=== PATIENT | male | born 1950 | race Caucasian/White ===

== ENCOUNTER → 2018-04-02 | Outpatient (CLI) | payer OTHER | LOC: FIMAGING 09:06 | PROVIDERS: ATTEND Nurse Practitioner Family | DX: Z13.6 Encounter for screening for cardiovascular disorders (principal); I71.2 Thoracic aortic aneurysm, without rupture; R91.8 Other nonspecific abnormal finding of lung field; Z82.3 Family history of stroke; Z82.49 Family history of ischemic heart disease and other diseases of the circulatory system ==

== ENCOUNTER → 2018-04-18 | Outpatient (CLI) | payer OTHER ==
[~2018-04-18] MED LIST: IOPAMIDOL (ISOVUE 370) 100 ML BTL IV ONE
== END ==
LOC: FIMAGING 15:45
PROVIDERS: ATTEND Nurse Practitioner Family
DX: R93.1 Abnormal findings on diagnostic imaging of heart and coronary circulation (principal)
CPT/HCPCS: 82565-PO; Q9967

== ENCOUNTER 2018-06-28 08:11 | Day surgery (SDC) | payer BC, OTHER ==
[2018-06-28] MEDS ORDERED: ASPIRIN EC 325 MG TAB PO ONE ×2 (08:16→08:50)
[2018-06-28] MEDS ORDERED: NS 1,000 ML IV ONE (08:16)
[2018-06-28] MEDS ORDERED: FAMOTIDINE 20 MG TAB PO ONE (08:16)
[2018-06-28] MEDS ORDERED: diphenhydrAMINE 25 MG CAP PO ONE ×2 (08:16→08:49)
[2018-06-28] MEDS ORDERED: DIAZEPAM 5 MG TAB PO ONE (08:16)
[2018-06-28 08:50] LABS: PLATELET COUNT 243 10^3/uL (150-400)
[2018-06-28] MEDS ORDERED: DIAZEPAM 5 MG TAB ONE (08:50)
[2018-06-28] MEDS ORDERED: FAMOTIDINE 20 MG TAB ONE (08:50)
[2018-06-28 09:07] LABS: INR 1.07 (0.83-1.16); PROTIME(PATIENT) 13.5 SEC (12.0-15.0)
[2018-06-28] MEDS ORDERED: LIDOCAINE 1% 300 MG/30 ML SDV ONE (09:09)
[2018-06-28] MEDS ORDERED: fentaNYL 100 MCG/2 ML INJ ONE (09:09)
[2018-06-28] MEDS ORDERED: HEPARIN 10,000 UNIT/10 ML MDV (1,000 UNIT/ML) ONE (09:09)
[2018-06-28] MEDS ORDERED: MIDAZOLAM 2 MG/2 ML VIAL ONE (09:09)
[2018-06-28] MEDS ORDERED: VERAPAMIL 5 MG/2 ML VIAL ONE (09:09)
[2018-06-28] MEDS ORDERED: IOPAMIDOL (ISOVUE 370) 100 ML BTL IV ONE (09:10)
--- NOTE | 2018-06-28 09:59 | PDHPUP ---
History & Physical Update H&P update statement: This history and physical update is based on an assessment of the patient which was completed after admission or registration (within 24 hours), but prior to the surgery/procedure. H&P update: H&P reviewed & patient examined, no change in patient's condition since H&P completed
--- NOTE | 2018-06-28 09:59 | PDPROPOC ---
Sedation Plan of Care Sedation Plan of Care: vital signs stable, mental status noted, patient educated of risks, benefits, alternatives, patient can tolerate sedation ASA Classification: ASA 2 Planned drugs: fentanyl, midazolam Mallampati Score: Class 2 Mallampati Reference Image: Patient passed 3-3-2 rule?: Yes
[2018-06-28] MEDS ORDERED: ONDANSETRON 4 MG/2 ML VIAL IVP PRN (11:04)
[2018-06-28] MEDS ORDERED: NITROGLYCERIN 0.4 MG BTL SL PRN (11:04)
[2018-06-28] MEDS ORDERED: HYDROCODONE/APAP 5/325 TAB PO PRN (11:04)
[2018-06-28] MEDS ORDERED: ATROPINE SULFATE 1 MG/10 ML SYR IVP PRN (11:04)
--- NOTE | 2018-06-28 11:11 | PDDXCAT ---
Diagnostic Cath Note - . Date: 06/28/18 Monitor And Storage Bin Tender: Ross Indication: other (Known CAD by CT and abnormal stress test.) - Procedure Procedure: left heart catheterization, coronary angiography, left ventriculogram - Materials Left Heart Cath size: 5F Left Heart Cath materials: pigtail, other (TIG) - Findings-Left Heart Catheterization LM: Distal left main 40%. LAD: Mid-LAD 70% involving bifurcation of 1st diagonal; 1st diagonal 70% ostial. LCX: Ostial 70%; otherwise mild irregularities. RCA: Diffuse mild irregularities. EDP: 15 mmHg LVEF: 60% Wall motion: No regional variation in contractility. Complications: None Estimated blood loss: <50ml Closure method: TR Band Assessment: 1) CAD as described above. 2) Normal LV systolic function. Plan: CT surgery referral to consider CABG.
--- NOTE | 2018-07-02 15:28 | CPEKG ---
Test Reason : OPEN Blood Pressure : / mmHG Vent. Rate : 052 BPM Atrial Rate : 052 BPM P-R Int : 187 ms QRS Dur : 088 ms QT Int : 496 ms P-R-T Axes : 049 004 044 degrees QTc Int : 462 ms Sinus rhythm Confirmed by Mauricio Hood ([id number]) on 07/02/2018 3:28:17 PM Referred By: Mp Hawkins Confirmed By:Mauricio Hood
== END 2018-06-28 15:01 | disposition home or self-care (01) ==
LOC: FCATH 08:11
PROVIDERS: ATTEND Internal Medicine Interventional Cardiology
DX: I25.10 Atherosclerotic heart disease of native coronary artery without angina pectoris (principal); I10 Essential (primary) hypertension; E66.3 Overweight
CPT/HCPCS: 93005; 93458; 93880; C1769; J1644; J2250; J3010; Q9967

== ENCOUNTER 2018-07-05 07:15 | Inpatient (IN) | payer BC ==
[2018-07-06] MEDS ORDERED: PHENYLEPHRINE HCL 50 MG in NS 250 ML IV ONE (06:00)
[2018-07-06] MEDS ORDERED: PAPAVERINE HCL 240 MG in NS (SYRINGE) 32 ML IV ONE (06:00)
[2018-07-06] MEDS ORDERED: INSULIN REGULAR HUMAN 100 UNIT in NS 100 ML IV ONE (06:00)
[2018-07-06] MEDS ORDERED: MANNITOL 25% 12.5 GM/50 ML VIAL IVP ONE (06:00)
[2018-07-06] MEDS ORDERED: CARDIOPLEGIC SOLUTION 1,052.8 ML PF ONE (06:00)
[2018-07-06] MEDS ORDERED: VERAPAMIL 5 MG, NITROGLYCERIN 2.5 MG, HEPARIN 500 UNIT, SODIUM BICARBONATE 0.2 MEQ in L... MISC ONE (06:00)
[2018-07-06] MEDS ORDERED: NITROGLYCERIN/DEXTROSE 250 ML IV ONE ×2 (06:00)
[2018-07-06] MEDS ORDERED: LIDOCAINE 1% 2 ML INJ ID PRN (06:32)
[2018-07-06] MEDS ORDERED: AMINOCAPROIC ACID 5 GM/20 ML VIAL IV ONE (06:32)
[2018-07-06] MEDS ORDERED: CITRATE DEXTROSE SOLN 500 ML BAG MISC ONE (06:32)
[2018-07-06] MEDS ORDERED: ceFAZolin 2 GM/DEXTROSE 100 ML IV ONE (06:32)
[2018-07-06] MEDS ORDERED: CALCIUM CHLORIDE 1 GM/10 ML INJ ONE (06:39)
[2018-07-06] MEDS ORDERED: PROTAMINE SULFATE 50 MG/5 ML VIAL IVP ONE (06:39)
[2018-07-06] MEDS ORDERED: MILRINONE/DEXTROSE/100 ML BAG IV ONE (06:39)
[2018-07-06] MEDS ORDERED: ALBUMIN 5% 250 ML BOTTLE IV ONE ×2 (06:39→10:24)
[2018-07-06] MEDS ORDERED: AMINOCAPROIC ACID 5 GM/20 ML VIAL ONE (06:39)
[2018-07-06] MEDS ORDERED: SUCCINYLCHOLINE CHLORIDE 200 MG/10 ML SYR IVP ONE (06:40)
[2018-07-06] MEDS ORDERED: HEPARIN 10,000 UNIT/10 ML MDV (1,000 UNIT/ML) ONE (06:40)
[2018-07-06] MEDS ORDERED: MIDAZOLAM 2 MG/2 ML VIAL ONE ×2 (06:40→11:08)
[2018-07-06] MEDS ORDERED: LIDOCAINE 2% 100 MG/5 ML SYR ONE (06:40)
[2018-07-06] MEDS ORDERED: ROCURONIUM 100 MG/10 ML VIAL ONE ×2 (06:40)
[2018-07-06] MEDS ORDERED: fentaNYL 250 MCG/5 ML INJ ONE ×2 (06:40)
[2018-07-06] MEDS ORDERED: NA BICARBONATE 50 MEQ/50 ML VIAL ONE ×2 (06:40→11:40)
[2018-07-06] MEDS ORDERED: PROPOFOL 200 MG/20 ML VIAL ONE (06:40)
[2018-07-06] MEDS ORDERED: LIDOCAINE 2% 5 ML SDV ONE (06:41)
[2018-07-06] MEDS ORDERED: CITRATE DEXTROSE SOLN 500 ML BAG ONE (06:41)
[2018-07-06] MEDS ORDERED: niCARdipine/NACL/200 ML BAG IV ONE (06:41)
[2018-07-06] MEDS ORDERED: MAGNESIUM SULFATE 1 GM/2 ML VIAL ONE (06:41)
[2018-07-06] MEDS ORDERED: ADENOSINE 6 MG/2 ML VIAL ONE (06:41)
[2018-07-06] MEDS ORDERED: AMIODARONE HCL 150 MG/3 ML VIAL ONE (06:41)
[2018-07-06] MEDS ORDERED: methylPREDNISolone SOD SUCC 1 GM/8 ML VIAL ONE (06:41)
[2018-07-06] MEDS ORDERED: DOPamine/DEXTROSE 400 MG/250 ML BAG IV ONE (06:41)
[2018-07-06] MEDS ORDERED: PHENYLEPHRINE 10 MG/ML SDV ONE (06:41)
[2018-07-06] MEDS ORDERED: PAPAVERINE HCL 60 MG/2 ML SDV ONE (06:42)
[2018-07-06] MEDS ORDERED: MINERAL OIL 10 ML VIAL ONE (06:42)
[2018-07-06] MEDS ORDERED: NITROGLYCERIN/D5W 50 MG/250 ML BOTTLE IV ONE (06:42)
[2018-07-06] MEDS ORDERED: ceFAZolin 1 GM VIAL ONE (06:42)
[2018-07-06] MEDS ORDERED: VERAPAMIL 5 MG/2 ML VIAL ONE (06:42)
--- NOTE | 2018-07-06 06:42 | PDHPUP ---
History & Physical Update H&P update statement: This history and physical update is based on an assessment of the patient which was completed after admission or registration (within 24 hours), but prior to the surgery/procedure. H&P update: no change in patient's condition since H&P completed (Patient is right handed. He has played the [employer] his whole life. Discussed pros/cons of radial artery harvest including volar numbness and he is willing to proceed with CABG/radial harvest.)
[2018-07-06] MEDS ORDERED: LR 1,000 ML IV ONE (06:44)
[2018-07-06] MEDS: MUPIROCIN 2% 22 GM OINT NS SCH ×3 (06:50→21:17)
[2018-07-06] MEDS ORDERED: MIDAZOLAM 2 MG/2 ML VIAL IVP ONE (07:02)
--- NOTE | 2018-07-06 07:02 | PDANEPAE ---
ANE History of Present Illness cab ANE Past Medical History - Cardiovascular History Hx Hypertension: No Hx Arrhythmias: No Hx Chest Pain: No Hx Coronary Artery / Peripheral Vascular Disease: No Hx CHF / Valvular Disease: No Hx Palpitations: No Cardiovascular History Comment: HYPERCHOLESTEREMIA - Pulmonary History Hx COPD: No Hx Asthma/Reactive Airway Disease: No Hx Recent Upper Respiratory Infection: No Hx Oxygen in Use at Home: No Hx Sleep Apnea: No Sleep Apnea Screening Result - Last Documented: Positive - Neurologic History Hx Cerebrovascular Accident: No Hx Seizures: No Hx Dementia: No Neurologic History Comment: MIGRAINES ONCE EVERY 1-3 MOS - Endocrine History Hx Diabetes: No Hypothyroid: No Hyperthyroid: No Obesity: mild Endocrine History Comment: GLUCOSE FLUCTUATES - Renal History Hx Renal Disorders: No - Liver History Hx Hepatic Disorders: No - Neurological & Psychiatric Hx Hx Neurological and Psychiatric Disorders: No - Cancer History Hx Cancer: No - Congenital Disorder History Hx Congenital Disorders: No - GI History GERD: no Hx Gastrointestinal Disorders: No - Other Health History Other Health History: NEG - Chronic Pain History Chronic Pain: No - Surgical History Prior Surgeries: ORAL SURGERY ANE Review of Systems Review of Systems: - Exercise capacity Exercise capacity: >=4 METS METS (RN): 5 METS ANE Patient History - Allergies Allergies/Adverse Reactions: simvastatin [From Zocor] Allergy (Verified 07/06/18 06:33) MUSCLE PAIN - Home Medications Home medications: home medication list seen and reviewed Home Medications: Acetaminophen/ASA/Caffeine [Excedrin Tablet (*)] 1 each PO DAILY PRN 06/21/18 [ Last Taken 07/05/18] Aspirin [Aspirin 81mg (*)] 81 mg PO DAILY 06/21/18 [Last Taken 07/05/18] Atorvastatin Calcium [Lipitor 40 mg (*)] 40 mg PO Q2D@2100 06/21/18 [Last Taken 07/05/18] Herbals/Supplements -Info Only 1 ea PO DAILY 06/21/18 [Last Taken 07/05/18] Metoprolol Tartrate [Lopressor 25 mg (*)] 12.5 mg PO BID 06/21/18 [Last Taken ] - NPO status NPO Status: no food or drink >8 hours NPO Since - Liquids (Date): 07/05/18 NPO Since - Liquids (Time): 22:00 NPO Since - Solids (Date): 07/05/18 NPO Since - Solids (Time): 20:00 - Anes Hx Anes Hx: no prior problems - Smoking Hx Smoking Status: Never smoked - Family Anes Hx Family Hx Anesthesia Complications: NEG ANE Labs/Vital Signs - Vital Signs Blood Pressure: 163/86 Heart Rate: 54 Respiratory Rate: 16 O2 Sat (%): 96 Height: 177.8 cm Weight: 79.379 kg ANE Physical Exam - Airway Mallampati Score: Class 2 Mouth exam: normal dental/mouth exam - Pulmonary Pulmonary: no respiratory distress - Cardiovascular Cardiovascular: regular rate and rhythym - ASA Status ASA Status: III ANE Anesthesia Plan Anesthesia Plan: general endotracheal anesthesia Lines/Monitors: arterial line, central line
[2018-07-06] MEDS ORDERED: NOREPINEPHRINE BITARTRATE 16 MG in NS 250 ML IV ONE (07:30)
[2018-07-06] MEDS ORDERED: GLYCOPYRROLATE 0.2 MG/1 ML VIAL ONE ×3 (07:36→08:09)
[2018-07-06] MEDS ORDERED: ENALAPRILAT DIHYDRATE 2.5 MG/2 ML VIAL IVP ONE (07:53)
[2018-07-06] MEDS ORDERED: LABETALOL HCL 5 MG/ML 20 ML MDV ONE (07:56)
[2018-07-06] MEDS ORDERED: KETOROLAC 30 MG/1 ML SDV ONE (10:21)
[2018-07-06] MEDS ORDERED: SUGAMMADEX SODIUM 200 MG/2 ML VIAL IVP ONE (10:36)
[2018-07-06] MEDS ORDERED: CEPACOL LOZENGE PO PRN (10:51)
[2018-07-06] MEDS ORDERED: BISACODYL 10 MG SUPP PR PRN (10:51)
[2018-07-06] MEDS ORDERED: SODIUM CL NASAL 45 ML BTL EACHNARE PRN (10:51)
[2018-07-06] MEDS ORDERED: METOCLOPRAMIDE 10 MG/2 ML VIAL IVP PRN (10:51)
[2018-07-06] MEDS ORDERED: POTASSIUM Cl (KCl) 50 ML IV PRN (10:51)
[2018-07-06] MEDS ORDERED: MAGNESIUM HYDROXIDE 30 ML UDCUP PO PRN (10:51)
[2018-07-06] MEDS ORDERED: fentaNYL 100 MCG/2 ML INJ IVP PRN (10:51)
[2018-07-06] MEDS ORDERED: D50W 25 GM/50 ML SYR IVP PRN (10:51)
[2018-07-06] MEDS ORDERED: ONDANSETRON DISINTEGRATING 4 MG TAB PO PRN (10:51)
[2018-07-06] MEDS ORDERED: ACETAMINOPHEN 650 MG SUPP PR PRN (10:51)
[2018-07-06] MEDS ORDERED: POLYETHYLENE GLYCOL 3350 17 GM PKT PO PRN (10:51)
[2018-07-06] MEDS ORDERED: PANTOPRAZOLE SODIUM 40 MG VIAL IVP ONE (10:51)
[2018-07-06] MEDS ORDERED: MEPERIDINE 25 MG/0.5 ML AMP IVP PRN (10:51)
[2018-07-06] MEDS ORDERED: ACETAMINOPHEN 325 MG TAB PO PRN (10:51)
[2018-07-06] MEDS ORDERED: NS 1,000 ML IV SCH (11:00)
[2018-07-06] MEDS ORDERED: NITROGLYCERIN/DEXTROSE 250 ML IV SCH (11:00)
[2018-07-06] MEDS ORDERED: INSULIN REGULAR HUMAN 100 UNIT in NS 100 ML IV SCH (11:00)
[2018-07-06] MEDS ORDERED: fentaNYL 100 MCG/2 ML INJ ONE (11:05)
[2018-07-06] MEDS ORDERED: NALOXONE HCL 0.4 MG/ML INJ IVP PRN (11:17)
--- NOTE | 2018-07-06 11:18 | POSTANESTH ---
Post Anesthetic Evaluation Cardiovascular Status: Normal, Stable Respiratory Status: Normal, Stable Level of Consciousness/Mental Status: Can Participate in Eval Pain Control: Adequate, Prn Tx Ordered Nausea/Vomiting Control: Adequate, Prn Tx Ordered Complications Possibly Related to Anesthesia: None Noted
--- NOTE | 2018-07-06 11:22 | GOP ---
[f rep st] OPERATIVE REPORT DATE OF OPERATION: 07/06/2018 SURGEON: Mp Abraham DO PHOTOCOMPOSING KEYBOARD OPERATOR: Denilson ANESTHESIOLOGIST: Joby PREOPERATIVE DIAGNOSIS: Arteriosclerotic heart disease. POSTOPERATIVE DIAGNOSIS: Arteriosclerotic heart disease. PROCEDURE PERFORMED: 1. Coronary artery bypass grafting x3 with all arterial conduits with left internal mammary artery t o the distal left anterior descending, left radial artery to the diagonal, and right internal mammary artery to the lateral circumflex via the transverse sinus. 2. AtriClip to the left atrial appendage. FINDINGS: Patient was noted normal LV function with severe 2-vessel disease. DESCRIPTION OF PROCEDURE: He was consented for surgery brought to the operating room, intubated. Mo nitoring lines were placed. He was prepped and draped in sterile classical manner. Sternotomy was p erformed. Both mammaries and radials were harvested. All conduits were excellent with good flow. H is aorta was without thickening or calcification. He was heparinized, cannulated. Bypass was begun and cardioplegic arrest was obtained with [place] protocol, as well as topical hypothermia in the fo rm of [facility]. Initially, the right internal mammary artery was brought through lateral pericardial incision via the transverse sinus and anastomosed to the proximal portion of the 1st OM. This was a 2.4 to 2.5 mm ve ssel. The mammary had excellent flow. It was tacked to the epicardium. We then placed a 35 mm Atri Clip across the base of the left atrial appendage. We then grafted an excellent quality radial harve sted from the left arm to the diagonal and then anastomosed to the ascending aorta. Rewarming was be gun when the left internal mammary artery was anastomosed to the distal LAD. The LAD was heavily nathaly cified throughout its course; however, we found a suitable soft area on the distal 3rd of the LAD whe re we could easily graft it. It was tacked to the epicardium. Cross-clamp was removed with suction on the ascending aortic vent. Spontaneous cardiac activity was noted to resume. He was easily weaned from bypass. Heparin was reversed with protamine. Cannula wa s removed and oversewn. Two ventricular pacing wires, 2 pleural and 1 mediastinal drain were placed. The thymic fat and pericardium were closed. Chest was closed in standard fashion. The patient was returned the to ICU in stable condition. /[id number]/MODL
[2018-07-06] MEDS ORDERED: NA BICARBONATE 50 MEQ/50 ML VIAL IV ONE (11:45)
--- NOTE | 2018-07-06 11:46 | PDMN ---
Medical Necessity Medical necessity: MCG S390 CABG 4 days: MC IPO: OP: CABG X 3
[2018-07-06] MEDS: ALBUMIN 5% 250 ML IV PRN ×2 (11:54→12:00)
[2018-07-06] MEDS ORDERED: ALBUMIN 5% 500 ML BOTTLE IV ONE (12:34)
--- NOTE | 2018-07-06 12:47 | GCON ---
[f rep st] CONSULTATION BROKER IN CHARGE CONSULTATION. I was asked to see the patient in consultation by Dr. Mp Abraham. He is examined postoperatively af ter receiving coronary artery bypass graft. The patient is a 68-year-old white male with a [facility] history of hypercholesterolemia, migraines. Again, he is examined postoperatively. He is curren tly somewhat sedated, but off mechanical ventilation. He is on supplemental oxygen. All history is gleaned from the medical record. Apparently, he has been followed by Dr. Hawkins. His primary care doctor is Dr. Josef Urbina. Prior to this, patient was in fairly good health with an active lifes tyle. He cycles and lifts weights. REVIEW OF SYSTEMS: Ten-point review of systems is performed and negative except for as listed in HPI . PAST MEDICAL HISTORY: Significant for hypercholesterolemia and migraines. PAST SURGERIES: Has had gum surgery and wisdom teeth removed. MEDICATIONS: At home include saw palmetto, milk thistle, metoprolol, Lipitor, Excedrin, low-dose asp irin and Zocor. FAMILY HISTORY: Significant for coronary artery disease and stroke. SOCIAL HISTORY: Lifelong never smoker. He drinks 2 alcoholic drinks per day. Work history is retir ed. He is with children. He has lived in [place] most of his life. Is originally from [facility]. PHYSICAL EXAM: VITAL SIGNS: Blood pressure is 163/86, pulse 54, respirations 16, temperature is 36. 6, oxygen saturation 96% on supplemental oxygen. GENERAL: He is a well-developed, well-nourished, [age]-year-old white male who is resting comfortably in no acute distress. HEENT: Eyes are PERRLA, EOMI . Throat exam is deferred. NECK: Supple. No cervical adenopathy. HEART: Regular rate and rhythm with a 2/6 systolic murmur at the left sternal border without radiation. Sternal incision is noted. LUNGS: Diminished breath sounds but no wheeze. ABDOMEN: Soft, nontender. Bowel sounds are prese nt in all 4 quadrants. EXTREMITIES: No clubbing, cyanosis, or edema. LABORATORIES: Currently pending. IMAGING: Chest x-ray interpreted by myself reveals cardiomegaly. Central line in good position. St ernal wires are present. Mild fluid overload. IMPRESSION: 1. Coronary artery disease. 2. Status post 3-vessel coronary bypass graft and atrial clip. 3. Hypercholesterolemia. 4. Migraine history of migraine headaches. RECOMMENDATIONS: 1. Adequate pain control. 2. Wean FiO2 as tolerated. 3. Aggressive blood sugar control. 4. DVT and PE prophylaxis, holding anticoagulation for now. 5. Stress ulcer prophylaxis. 6. Early ambulation. 7. PT and OT. /[id number]/MODL
[2018-07-06] MEDS ORDERED: ALBUMIN 5% 500 ML IV ONE (13:00)
[2018-07-06] MEDS ORDERED: HEPARIN 5,000 UNIT/0.5 ML INJ SC SCH (14:00)
[2018-07-06] MEDS: ceFAZolin 2 GM/DEXTROSE 100 ML IV SCH ×2 (14:10→21:18)
[2018-07-06] MEDS: ONDANSETRON 4 MG/2 ML VIAL IVP PRN ×2 (14:57→20:13)
[2018-07-06] MEDS: HYDROCODONE/APAP 5/325 TAB PO PRN ×3 (15:43→23:53)
[2018-07-07] MEDS: ceFAZolin 2 GM/DEXTROSE 100 ML IV SCH ×3 (05:14→23:05)
[2018-07-07] MEDS: HYDROCODONE/APAP 5/325 TAB PO PRN ×4 (05:14→22:35)
[2018-07-07 05:40] LABS: PLATELET COUNT 166 10^3/uL (150-400)
[2018-07-07] MEDS: HEPARIN 5,000 UNIT/0.5 ML INJ SC SCH ×3 (06:12→23:14)
--- NOTE | 2018-07-07 07:04 | SOAPPROG ---
SOAP Progress Note Assessment/Plan: Assessment: POD#1 CABGx3 (WOODARD-LAD, WILLIAM-Cx, LRA-Dx), Open left radial artery harvest, Atriclip to left atrial appendage Severe 2V CAD s/p CABGx3 - On ASA. Will resume Lipitor QOD when taking better po. BB for secondary prevention when appropriate. - On NTG gtt for all arterial conduits. Will transition to Norvasc, which patient should continue for 3 months. Acute blood loss anemia - Stable with H&H 11.9/36.8 - VTE prophylaxis with SCDs/SQ hep Acute respiratory insufficiency - Stable. On 2L NC Urinary retention - Patel removed yesterday with low urine output (750mls/24hrs). Bladder scan showed 380mls. - Straight cath prn. Hypercholesterolemia - Patient intolerant of statins (muscle weakness). Tolerates Lipitor 40mg QOD. - Will start Lipitor when taking better po. Migraine - Stable Deconditioning s/p surgery - Continue PT/OT and encourage ambulation/IS Plan: D/c NTG gtt and start Norvasc 2.5mg daily. D/c pacing wires today. Blakes to bulbs. Straight cath Q6 prn and start Flomax 0.4mg daily. Transfer to the floor today. Subjective: Patient reports good pain control. "My prostate might be a little big." Objective: Vital Signs Temp Pulse Resp BP Pulse Ox 36.9 C 76 18 119/67 92 07/07/18 06:00 07/07/18 06:00 07/07/18 06:00 07/07/18 06:00 07/07/18 06:00 Laboratory Results 07/07/18 05:10 07/07/18 05:10 07/06/18 07/07/18 07/08/18 05:59 05:59 05:59 Intake Total 3245 Output Total 1730 Balance 1515 Physical Exam - Physical Exam General Appearance: WD/WN, alert, no apparent distress Neck: supple Respiratory: lungs clear, normal breath sounds, other (No wheezing, rhonchi, rales. ) Cardiac/Chest: regular rate, rhythm, other (No murmurs or rubs. Sternum stable. Sternotomy c/d/i. ) Abdomen: normal bowel sounds, non-tender, soft Skin: normal color, warm/dry Extremities: other (Warm, no edema.) Neuro/Psych: alert, normal mood/affect, oriented x 3 ICD10 Worksheet Patient Problems: Problems Problem Status Onset Acute blood loss anemia Acute CAD (coronary artery disease), [place] coronary artery Acute S/P CABG x 3 Acute S/P left atrial appendage ligation Acute
[2018-07-07] MEDS: MUPIROCIN 2% 22 GM OINT NS SCH ×2 (09:54→23:08)
--- NOTE | 2018-07-07 09:57 | PDINTPN ---
Field Superintendent Progress Note Assessment/Plan: Assessment/plan: * Coronary artery disease * Status post coronary artery bypass graft * Hypercholesteremia * Migraines * Pain-well controlled * PT/OT-ambulating currently. * Nutrition Subjective: Sitting up in chair. Pain well tolerated. Breathing easily. Objective: Vital Signs Temp Pulse Resp BP Pulse Ox 36.9 C 73 20 115/62 93 07/07/18 08:00 07/07/18 09:00 07/07/18 09:00 07/07/18 09:00 07/07/18 09:00 Laboratory Results 07/07/18 05:10 07/07/18 05:10 07/06/18 07/07/18 07/08/18 05:59 05:59 05:59 Intake Total 3245 Output Total 1730 Balance 1515 - Time Spent With Patient Time Spent With Patient: 35 min of time spent with patient, over 1/2 involved coordination of care counseling. Case discussed with nursing Physical Exam - Physical Exam General Appearance: alert, no apparent distress EENT: PERRL/EOMI Neck: non-tender, supple Respiratory: chest non-tender, lungs clear, normal breath sounds Cardiac/Chest: normal peripheral pulses, regular rate, rhythm, systolic murmur Abdomen: normal bowel sounds, non-tender, soft Male Genitalia: deferred Rectal: deferred Skin: normal color, cyanosis Extremities: normal range of motion, non-tender, normal inspection, normal capillary refill Neuro/Psych: no motor/sensory deficits, alert, normal mood/affect, oriented x 3 ICD10 Worksheet Patient Problems: Problems Problem Status Onset Acute blood loss anemia Acute CAD (coronary artery disease), [place] coronary artery Acute S/P CABG x 3 Acute S/P left atrial appendage ligation Acute
[2018-07-07] MEDS: TAMSULOSIN HCL 0.4 MG CAP PO SCH (10:01)
[2018-07-07] MEDS ORDERED: ASPIRIN 81 MG CHEWABLE TAB TUBE PRN (10:51)
[2018-07-07] MEDS: ASPIRIN 81 MG CHEWABLE TAB PO SCH (10:55)
[2018-07-07] MEDS: PANTOPRAZOLE SODIUM 40 MG TAB PO SCH (10:55)
--- NOTE | 2018-07-07 11:15 | ASMTCMCOM ---
CM Note CM Note Notes: Patient is POD #1 CABG x 3 (planned). He is doing well with all the standard post-op procedures. He will work with PT/OT today and likely tx to PCU. Patient is normally independent, lives with in [place]. Case Management will follow for d/c planning. Date Signed: 07/07/2018 11:14 AM Electronically Signed By:Smita Mandujano RN
[2018-07-07] MEDS ORDERED: CEPACOL LOZENGE PO PRN (12:15)
[2018-07-07] MEDS ORDERED: ACETAMINOPHEN 325 MG TAB PO PRN (12:15)
[2018-07-07] MEDS ORDERED: traMADol 50 MG TAB PO PRN (12:15)
[2018-07-07] MEDS ORDERED: HYDROCODONE/APAP 5/325 TAB PO PRN (12:15)
[2018-07-07] MEDS ORDERED: LACTULOSE 20 GM/30 ML UDCUP PO PRN (12:15)
[2018-07-07] MEDS: SENNOSIDES/DOCUSATE SODIUM TAB PO SCH (22:56)
[2018-07-08] MEDS: HYDROCODONE/APAP 5/325 TAB PO PRN ×2 (02:53→08:40)
[2018-07-08] MEDS: HEPARIN 5,000 UNIT/0.5 ML INJ SC SCH ×3 (06:18→22:55)
[2018-07-08 06:37] LABS: PLATELET COUNT 152 10^3/uL (150-400)
--- NOTE | 2018-07-08 08:37 | SOAPPROG ---
EVELYN Progress Note Assessment/Plan: Assessment: POD#2 CABGx3 (WOODARD-LAD, WILLIAM-Cx, LRA-Dx), Open left radial artery harvest, Atriclip to left atrial appendage Severe 2V CAD s/p CABGx3 - On ASA. Will resume Lipitor QOD and start Metoprolol for secondary prevention. - On Norvasc to prevent spasm of arterial conduits, which patient should continue for 3 months. Acute blood loss anemia - Stable - VTE prophylaxis with SCDs/SQ hep Acute respiratory insufficiency - Stable. On 3L NC Urinary retention - Persists. Patient with complaints of dysuria. Will check UA and replace lockwood. Increase Flomax to 0.8mg daily. - Will ask Urology to see patient. Hypercholesterolemia - Patient intolerant of statins (muscle weakness). Tolerates Lipitor 40mg QOD. - Will resume Lipitor today. Migraine headaches - Stable Deconditioning s/p surgery - Continue PT/OT and encourage ambulation/IS. Plan: Start Metoprolol 12.5mg BID. Start Lasix 40mg daily. Check UA and re-insert lockwood. Increase Flomax to 0.8mg daily. D/c chest tubes today. Switch to Percocet. Subjective: Patient reports poor pain control. "Choudrant makes me feel loopy, but it works." Objective: Vital Signs Temp Pulse Resp BP Pulse Ox 37.2 C 83 20 123/77 H 94 07/08/18 07:05 07/08/18 07:05 07/08/18 07:05 07/08/18 07:05 07/08/18 07:05 Laboratory Results 07/08/18 06:10 07/08/18 06:10 07/07/18 07/08/18 07/09/18 05:59 05:59 05:59 Intake Total 3245 1910 Output Total 1730 1345 425 Balance 1515 565 -425 Physical Exam - Physical Exam General Appearance: WD/WN, alert, no apparent distress Neck: supple Respiratory: lungs clear, decreased breath sounds (bases), other (No wheezing, rhonchi. ) Cardiac/Chest: regular rate, rhythm, other (No murmurs or rubs. Sternum stable. Sternotomy c/d/i. ) Abdomen: non-tender, soft, other (Non-distended. ) Skin: normal color, warm/dry Extremities: other (Warm, no edema. ) Neuro/Psych: alert, normal mood/affect, oriented x 3 ICD10 Worksheet Patient Problems: Problems Problem Status Onset Acute blood loss anemia Acute CAD (coronary artery disease), [place] coronary artery Acute S/P CABG x 3 Acute S/P left atrial appendage ligation Acute
[2018-07-08] MEDS: TAMSULOSIN HCL 0.4 MG CAP PO SCH (08:38)
[2018-07-08] MEDS: SENNOSIDES/DOCUSATE SODIUM TAB PO SCH ×2 (08:38→20:37)
[2018-07-08] MEDS: ASPIRIN 81 MG CHEWABLE TAB PO SCH (08:39)
[2018-07-08] MEDS: ATORVASTATIN CALCIUM 40 MG TAB PO SCH (08:40)
[2018-07-08] MEDS: PANTOPRAZOLE SODIUM 40 MG TAB PO SCH (08:40)
[2018-07-08] MEDS: METOPROLOL TARTRATE 25 MG TAB PO SCH ×2 (08:41→20:36)
[2018-07-08] MEDS: FUROSEMIDE 40 MG TAB PO SCH (08:41)
[2018-07-08] MEDS: POTASSIUM CL 20 MEQ TAB PO SCH (08:41)
[2018-07-08] MEDS: MUPIROCIN 2% 22 GM OINT NS SCH (08:48)
[2018-07-08] MEDS ORDERED: TAMSULOSIN HCL 0.4 MG CAP PO ONE (10:15)
[2018-07-08] MEDS ORDERED: KETOROLAC 30 MG/1 ML SDV IVP ONE (10:19)
[2018-07-08] MEDS ORDERED: OXYCODONE/APAP 5/325 TAB PO PRN (12:00)
--- NOTE | 2018-07-08 18:21 | SOAPPROG ---
EVELYN Progress Note Assessment/Plan: Assessment: Urinary retention due to benign prostatic hyperplasia Acute discussed dx and options of rx now. Plan for lockwood til Monday AM and remove, pyridium planned. If not able to void consider formal assessment. Plan: lockwood, remove Monday AM, assessment if pt continues not to void--- dictated consult 07/08/18 18:19 Subjective: retention Objective: Vital Signs Temp Pulse Resp BP Pulse Ox 37.1 C 69 19 115/64 94 07/08/18 16:00 07/08/18 16:00 07/08/18 16:00 07/08/18 16:00 07/08/18 16:00 Laboratory Results 07/08/18 06:10 07/08/18 06:10 07/07/18 07/08/18 07/09/18 05:59 05:59 05:59 Intake Total 3245 1910 400 Output Total 1730 1345 975 Balance 1515 565 -575 Physical Exam - Physical Exam General Appearance: alert Abdomen: other (distended bladder) Male Genitalia: normal genitalia (blood at meatus) Rectal: deferred Extremities: No calf tenderness, No Shankar's sign Neuro/Psych: alert, oriented x 3 ICD10 Worksheet Patient Problems: Problems Problem Status Onset Urinary retention due to benign prostatic hyperplasia Acute Acute blood loss anemia Acute CAD (coronary artery disease), [place] coronary artery Acute S/P CABG x 3 Acute S/P left atrial appendage ligation Acute - ICD10 Problem Qualifiers (1) Urinary retention due to benign prostatic hyperplasia
--- NOTE | 2018-07-08 18:58 | GCON ---
[f rep st] CONSULTATION DATE OF CONSULTATION: 07/08/2018 By history, this is a 68-year-old gentleman who had coronary artery bypass surgery and postoperativel y has been unable to void. He has a reported traumatic catheterization and has been intermittently c atheterized 3 times and is having significant dysuria related to catheterizations. He had a residual urine when I saw him of over 500 mL. He is having distention, feels like he needs to void, and is q uite uncomfortable. Pre-surgery, his genitourinary symptoms noted that he had some hesitancy and noc tur[place] 1 time per night. He denied history of UTIs, and by report, he has had an average-size prostat e per his primary care, Dr. Urbina. I reviewed his chart and history and his medical records and med ications. At the present time, he is alert, oriented. He was sitting in a chair when I visited with him. Originally in no acute distress other than needing to void, and we discussed putting a cathete r in, so at that point, he laid in bed. PHYSICAL EXAM: EYES: He had no scleral icterus. CHEST: His chest wound was healing well, clean. ABDOMEN: Without rebound or guarding. He had suprapubic fullness. Penis was normally at groin. Phimosis from his previous surgery. EXTREMITIES: Lower extremities had no suggestion of DVT. : Scrotum and testicles were normal. At the present time, I discussed with him the options of therapy of clean intermittent catheterizatio n or indwelling Patel for several days and then to reassess later if he continues to have urinary ret ention, and he has agreed to have the Patel catheter placed. PROCEDURE NOTE: PROCEDURE: Complex catheterization, Dr. Daniel Vargas. The patient was prepped and draped in normal sterile fashion, and he had blood from the meatus noted on the prep, and Uro-Jet was placed in the urethra. Then I was able to place an [address] that went into the bladder quite easily. 10 cc balloon inflated, and the area irrigated, and the urine that was draining was clear. So at the present time, he no complications encountered. No spe cimens obtained, and the plan is to leave the catheter in and then on Monday, remove it and see if he can void. No further assessment. If he cannot at that point, as an outpatient he probably should have cystoscopy and formal urodynamics and to assess his urinary symptoms. /[id number]/MODL
[2018-07-09] MEDS: HEPARIN 5,000 UNIT/0.5 ML INJ SC SCH ×3 (05:30→21:43)
--- NOTE | 2018-07-09 07:29 | SOAPPROG ---
SOAP Progress Note Assessment/Plan: Assessment: POD#3 CABGx3 (WOODARD-LAD, WILLIAM-Cx, LRA-Dx), Open harvest left radial artery, prophylactic Atriclip exclusion left atrial appendage Severe 2V CAD - s/p CABGx3. Stable early postop course. Tubes and wires out. No sig volume overload. Secondary prevention with ASA, BB and Lipitor QOD ( myalgias on higher doses). Adjunctive CCB x 3 mo for radial artery antispasm prophylaxis. Acute expected blood loss anemia - Stable. No transfusions required. VTE prophylaxis with SCDs/SQ hep Acute postop respiratory insufficiency - Multifactorial, primarily pleural tube pain. Anticipate steady resolution of suppl O2 req as pulmphysiotherapy intensified. Postoperative urinary retention - Assoc with dysuria. BPH suspected. UA neg for infection. Coude lockwood placed by urology and to remain thru Tues. Flomax started. Pyridium to be added for ongoing dysuria. Formal assessment if ongoing voiding difficulties. Plan: Cont metoprolol 12.5 mg BID Cont amlodipine 2.5 mg daily Cont lasix 40 mg daily Cont lipitor 40 mg qod Cont flomax 0.8 mg daily Inc activity and pulm toilet Dispo - Anticipate home without services next 1-2 days pending clearance 07/09/18 07:24 Subjective: Much more comfortable since tubes out. IS up to 1500. Percocet down to 1 tab. Objective: Vital Signs Temp Pulse Resp BP Pulse Ox 37.5 C 78 20 125/70 H 91 L 07/09/18 04:00 07/09/18 04:00 07/09/18 04:00 07/09/18 04:00 07/09/18 04:00 Laboratory Results 07/08/18 06:10 07/09/18 05:41 07/08/18 07/09/18 07/10/18 05:59 05:59 05:59 Intake Total 1910 750 Output Total 1345 1525 Balance 565 -775 HR and BP controlled Stable suppl O2 req Adequate fluid balance CXR-> no effusions, mild pulm vasc congestion, improved aeration bilat bases Labs ok - Pending Discharge Pending Discharge Within 48 Hours: Yes Pending Discharge Date: 07/11/18 Pending Discharge Time: 11:00 Physical Exam - Physical Exam General Appearance: alert, no apparent distress Respiratory: lungs clear Cardiac/Chest: regular rate, rhythm, other (Sternotomy and LR arteriotomy CDI) Abdomen: non-tender, soft Male Genitalia: other (lockwood intact) Skin: warm/dry Extremities: swelling (trace - 1+ LUE, no visible leg edema) ICD10 Worksheet Patient Problems: Problems Problem Status Onset Urinary retention due to benign prostatic hyperplasia Acute Acute blood loss anemia Acute CAD (coronary artery disease), [place] coronary artery Acute S/P CABG x 3 Acute S/P left atrial appendage ligation Acute
[2018-07-09] MEDS: METOPROLOL TARTRATE 25 MG TAB PO SCH ×2 (09:10→21:42)
[2018-07-09] MEDS: PANTOPRAZOLE SODIUM 40 MG TAB PO SCH (09:11)
[2018-07-09] MEDS: FUROSEMIDE 40 MG TAB PO SCH (09:11)
[2018-07-09] MEDS: POTASSIUM CL 20 MEQ TAB PO SCH (09:11)
[2018-07-09] MEDS: SENNOSIDES/DOCUSATE SODIUM TAB PO SCH ×2 (09:11→21:41)
[2018-07-09] MEDS: ASPIRIN 81 MG CHEWABLE TAB PO SCH (09:11)
[2018-07-09] MEDS: TAMSULOSIN HCL 0.4 MG CAP PO SCH (09:21)
[2018-07-09] MEDS: OXYCODONE/APAP 5/325 TAB PO PRN ×2 (11:07→21:43)
--- NOTE | 2018-07-09 13:29 | ASMTCMCOM ---
CM Note CM Note Notes: Chart reviewed. Patient POD 3 CABG. Per PA clinically improving and may dc to home soon without services. CM available should needs arise. Plan: Dc to home when medically cleared for discharge. Date Signed: 07/09/2018 01:28 PM Electronically Signed By:Eloisa Esparza RN
--- NOTE | 2018-07-09 14:43 | SOAPPROG ---
SOCONSUELO Progress Note Assessment/Plan: Assessment: Urinary retention due to benign prostatic hyperplasia Acute discussed dx and options of rx now. Plan for lockwood til Monday AM and remove, pyridium planned. If not able to void consider formal assessment. Plan: lockwood, remove Monday AM, assessment if pt continues not to void 07/09/18 14:42 Subjective: doing well Objective: Vital Signs Temp Pulse Resp BP Pulse Ox 37.2 C 78 18 109/61 93 07/09/18 12:00 07/09/18 12:00 07/09/18 12:00 07/09/18 12:00 07/09/18 12:00 Laboratory Results 07/08/18 06:10 07/09/18 05:41 07/08/18 07/09/18 07/10/18 05:59 05:59 05:59 Intake Total 1910 750 Output Total 1345 1525 950 Balance 565 -455 -950 Physical Exam - Physical Exam General Appearance: alert Respiratory: No respiratory distress Abdomen: non-tender Neuro/Psych: alert, oriented x 3 ICD10 Worksheet Patient Problems: Problems Problem Status Onset Urinary retention due to benign prostatic hyperplasia Acute Acute blood loss anemia Acute CAD (coronary artery disease), [place] coronary artery Acute S/P CABG x 3 Acute S/P left atrial appendage ligation Acute - ICD10 Problem Qualifiers (1) Urinary retention due to benign prostatic hyperplasia
[2018-07-09] MEDS: PHENAZOPYRIDINE HCL 200 MG TAB PO SCH (21:41)
[2018-07-09] MEDS ORDERED: METOPROLOL TARTRATE 25 MG TAB PO ONE (23:15)
[2018-07-10] MEDS: HEPARIN 5,000 UNIT/0.5 ML INJ SC SCH ×3 (05:57→21:41)
[2018-07-10] MEDS: OXYCODONE/APAP 5/325 TAB PO PRN ×3 (05:58→22:01)
--- NOTE | 2018-07-10 07:24 | SOAPPROG ---
SOAP Progress Note Assessment/Plan: Assessment: POD#4 CABGx3 (WOODARD-LAD, WILLIAM-Cx, LRA-Dx), Open harvest left radial artery, prophylactic Atriclip exclusion left atrial appendage Severe 2V CAD - s/p CABGx3. Stable early postop course. Tubes and wires out. No sig volume overload. Secondary prevention with ASA, BB and Lipitor QOD ( myalgias on higher doses). Adjunctive CCB x 3 mo for radial artery antispasm prophylaxis. Postoperative paroxysmal atrial fibrillation - Bursts of AF last noc, without RVR or hypotension. BB escalated with good effect. Amio reserved for RVR. [id number] score of 3. Antithrombotic prophylaxis with Eliquis if recurrent or persistent arrhythmia. Acute expected blood loss anemia - Stable. No transfusions required. VTE prophylaxis with SCDs/SQ hep Acute postop respiratory insufficiency - Multifactorial, primarily pleural tube pain. Anticipate steady resolution of suppl O2 req as pulmonary physiotherapy intensified. Postoperative urinary retention - Assoc with dysuria. BPH suspected. UA neg for infection. Flomax and Pyridium started. Coude cath placed by urology and removed this am. Formal assessment if ongoing voiding difficulties. Plan: Stop lasix Inc metoprolol to 25 mg BID Cont amlodipine 2.5 mg daily Cont inc activity and pulm toilet Dispo - Anticipate home without services this afternoon if able to void 07/10/18 07:13 Subjective: Doing ok. Patel out at 6am. Planning to try to void after breakfast and a walk. Objective: Vital Signs Temp Pulse Resp BP Pulse Ox 37.1 C 84 18 133/73 H 91 L 07/10/18 04:00 07/10/18 04:00 07/10/18 04:00 07/10/18 04:00 07/10/18 04:00 Laboratory Results 07/08/18 06:10 07/10/18 06:15 07/09/18 07/10/18 07/11/18 05:59 05:59 05:59 Intake Total 750 905 Output Total 1525 2700 Balance -775 -1795 Stuttering PAF last noc, asx. Sufficient BP for addtl BB. Vigorous UOP, now below admit wt. Physical Exam - Physical Exam General Appearance: alert, no apparent distress Respiratory: lungs clear (grossly) Cardiac/Chest: regular rate, rhythm, other (sternotomy, LRA CDI) Abdomen: non-tender, soft Skin: warm/dry Extremities: other (no visible edema) ICD10 Worksheet Patient Problems: Problems Problem Status Onset Urinary retention due to benign prostatic hyperplasia Acute Acute blood loss anemia Acute CAD (coronary artery disease), [place] coronary artery Acute S/P CABG x 3 Acute S/P left atrial appendage ligation Acute
[2018-07-10] MEDS: ATORVASTATIN CALCIUM 40 MG TAB PO SCH (08:47)
[2018-07-10] MEDS: ASPIRIN 81 MG CHEWABLE TAB PO SCH (08:47)
[2018-07-10] MEDS: SENNOSIDES/DOCUSATE SODIUM TAB PO SCH ×2 (08:48→21:42)
[2018-07-10] MEDS: PANTOPRAZOLE SODIUM 40 MG TAB PO SCH (08:48)
[2018-07-10] MEDS: METOPROLOL TARTRATE 25 MG TAB PO SCH ×2 (08:48→21:42)
[2018-07-10] MEDS: TAMSULOSIN HCL 0.4 MG CAP PO SCH (08:49)
[2018-07-10] MEDS: PHENAZOPYRIDINE HCL 200 MG TAB PO SCH ×2 (08:55→21:41)
[2018-07-10] MEDS ORDERED: POTASSIUM CL 10 MEQ TAB PO ONE (09:00)
--- NOTE | 2018-07-10 14:11 | ASMTCMCOM ---
CM Note CM Note Notes: Pt is experiencing urinary retention, thought to possibly be due to BPH. Coude catheter placed by urology, removed today. Cardiology will continue to monitor. CM D/C plan: TBD, likely independent to home Date Signed: 07/10/2018 02:10 PM Electronically Signed By:Fani Gaspar
[2018-07-10] MEDS ORDERED: LIDOCAINE 2% JELLY 20 ML (UROJECT) UR ONE (16:00)
--- NOTE | 2018-07-10 18:05 | SOAPPROG ---
SOCONSUELO Progress Note Assessment/Plan: Assessment: Urinary retention due to benign prostatic hyperplasia Acute discussed dx and options of rx now. Plan for lockwood removal unsuccessful and replaced by me. p= Plan: lockwood, DC home with this and have follow up in office for cysto / evaluation and discussion about rx options 07/10/18 18:02 Subjective: recurring retention Objective: Vital Signs Temp Pulse Resp BP Pulse Ox 37.1 C 99 20 96/62 L 89 L 07/10/18 15:27 07/10/18 17:47 07/10/18 15:27 07/10/18 17:47 07/10/18 15:27 Laboratory Results 07/08/18 06:10 07/10/18 06:15 07/09/18 07/10/18 07/11/18 05:59 05:59 05:59 Intake Total 849 304 6644 Output Total 1525 2700 750 Balance -770 -2330 850 Physical Exam - Physical Exam General Appearance: alert Respiratory: No respiratory distress Abdomen: soft Male Genitalia: other (normal penis, prep and drape, urojet used, 16 mong[place] coude cath placed and draining well, no complication in placement) Extremities: No calf tenderness, No Shankar's sign Neuro/Psych: alert, oriented x 3 ICD10 Worksheet Patient Problems: Problems Problem Status Onset Urinary retention due to benign prostatic hyperplasia Acute Acute blood loss anemia Acute CAD (coronary artery disease), [place] coronary artery Acute S/P CABG x 3 Acute S/P left atrial appendage ligation Acute - ICD10 Problem Qualifiers (1) Urinary retention due to benign prostatic hyperplasia
[2018-07-11] MEDS: HEPARIN 5,000 UNIT/0.5 ML INJ SC SCH (06:31)
[2018-07-11] MEDS: OXYCODONE/APAP 5/325 TAB PO PRN (06:31)
--- NOTE | 2018-07-11 07:37 | SOAPPROG ---
SOAP Progress Note Assessment/Plan: Assessment: POD#5 CABGx3 (WOODARD-LAD, WILLIAM-Cx, LRA-Dx), Open harvest left radial artery, prophylactic Atriclip exclusion left atrial appendage Severe 2V CAD - s/p CABGx3. Stable early postop course. Tubes and wires out. No sig volume overload. Secondary prevention with ASA, BB and Lipitor QOD ( myalgias on higher doses). Adjunctive CCB x 3 mo for radial artery antispasm prophylaxis. Postoperative paroxysmal atrial fibrillation - Bursts of AF POD#3 without RVR or hypotension. BB escalated with good effect. Amio reserved for RVR. [id number] VASc score of 3. Antithrombotic prophylaxis with Eliquis if recurrent arrhythmia. Acute expected blood loss anemia - Stable. No transfusions required. VTE prophylaxis with SCDs/SQ hep Acute postop respiratory insufficiency - Multifactorial, primarily pleural tube and incisional pain. Unable to resolve suppl needs prior to discharge. Postoperative urinary retention - Assoc with dysuria. BPH suspected. UA neg for infection. Flomax and Pyridium started. Coude cath replaced by urology for elev PVR after voiding trial yest. Outpt w/u planned in 1 wk. Plan: Ok for discharge home with lockwood cath/leg bag Instructions re diet, meds, activity, wound care and f/u instructions reviewed. 07/11/18 07:32 Subjective: Feels well. No acute concerns. Objective: Vital Signs Temp Pulse Resp BP Pulse Ox 36.8 C 79 13 128/71 H 95 07/11/18 07:00 07/11/18 07:00 07/11/18 07:00 07/11/18 07:00 07/11/18 07:00 Laboratory Results 07/08/18 06:10 07/10/18 06:15 07/10/18 07/11/18 07/12/18 05:59 05:59 05:59 Intake Total 905 2170 Output Total 2700 1775 Balance -1795 395 Cardioresp status stable. HR and BP controlled. Physical Exam - Physical Exam General Appearance: alert, no apparent distress Respiratory: lungs clear (grossly) Cardiac/Chest: regular rate, rhythm, other (Sternum grossly stable. Sternotomy and CT sites CDI with thin dry eschar) Abdomen: non-tender, soft Male Genitalia: other (lockwood intact) Skin: warm/dry Extremities: other (No visible edema. Left radial arteriotomy CDI. CSM intact) ICD10 Worksheet Patient Problems: Problems Problem Status Onset Urinary retention due to benign prostatic hyperplasia Acute Acute blood loss anemia Acute CAD (coronary artery disease), [place] coronary artery Acute S/P CABG x 3 Acute S/P left atrial appendage ligation Acute
--- NOTE | 2018-07-11 08:40 | PDHOMEO2F ---
Home Oxygen Face to Face Home Orders: I certify that a physician or a nurse practitioner or physician's corporate administrative assistant has had a [id number] encounter with this patient on the date of this order due to the diagnosis listed, which relates to the primary reason the patient requires home oxygen. Alternative treatments have been tried, or considered, and deemed ineffective. It is anticipated that supplemental oxygen will result in improvement with treatment. Home oxygen qualifying diagnosis: CAD SpO2 on room air (%): 85 Frequency of home oxygen needed: continuous Home oxygen liters per minute: 3 Home oxygen delivery device: nasal cannula Concentrator: Yes E-tanks for mobility and back up: Yes If ordering portable O2, is the patient mobile in the home?: Yes I certify that, based on these findings, the home oxygen is medically necessary for this patient for the following length of time. Length of time home oxygen needed: 1 month
--- NOTE | 2018-07-11 08:41 | ASDISCHSUM ---
Discharge Information Plan Status:Home with No Needs Medically Cleared to Leave: Discharge Date: CM D/C Disposition: ADT D/C Disposition:Home, Routine, Self-Care Projected Discharge Date: Transportation at D/C: Discharge Delay Reason: Follow-Up Date: Discharge Slot: Final Diagnosis: Placement Information Patient Contact Information Contact Name:JESSICA Relationship: Address:[address] [place] [address] City:[place] Alternate Phone: [facility] Code:[place] [address] Email: Financial Information Financial Class:BCOP Primary Plan Desc:BC OUT OF STATE PPO Primary Plan Number:[id number] Secondary Plan Desc: Secondary Plan Number: Assessment Information [facility] CM Progress Note CM Note CM Note Notes: Patient is POD #1 CABG x 3 (planned). He is doing well with all the standard post-op procedures. He will work with PT/OT today and likely tx to PCU. Patient is normally independent, lives with in [place]. Case Management will follow for d/c planning. Date Signed: 07/07/2018 11:14 AM Electronically Signed By:Smita Mandujano RN LACE LACE Length of stay for Answers: 4-6 days current admission Acuity / Level of Answers: Yes Care: Did the patient have an inpatient admission? Comorbidities - select Answers: Coronary Artery Disease all that apply # of Emergency department Answers: 1-2 visits in the last 6 months Score: 10 Date Signed: 07/11/2018 08:39 AM Electronically Signed By:Fani Gaspar [facility] CM Progress Note CM Note CM Note Notes: Chart reviewed. Patient POD 3 CABG. Per PA clinically improving and may dc to home soon without services. CM available should needs arise. Plan: Dc to home when medically cleared for discharge. Date Signed: 07/09/2018 01:28 PM Electronically Signed By:Eloisa Esparza RN [facility] CM Progress Note CM Note CM Note Notes: Pt is experiencing urinary retention, thought to possibly be due to BPH. Coude catheter placed by urology, removed today. Cardiology will continue to monitor. CM D/C plan: TBD, likely independent to home Date Signed: 07/10/2018 02:10 PM Electronically Signed By:Fani Gaspar Case Management Discharge Plan Note Case Management Discharge Discharge Order Complete? Answers: Yes Patient to Obtain Answers: Independently Medications Transportation Arranged Answers: Family/Friends Agency/Facility Transfer Answers: No Report Printed & Faxed to Receiving Agency Family Notified Answers: Yes Notes: Pt will call Discharge Comments Notes: Pt is being D/Cd independently to home today. Cardiology will meet with him before he leaves to schedule a follow-up appointment, and pt has been given information on scheduling outpatient cardiac rehab by Vianney Alonzo, cardiology. Dr. Vargas's office (urology) will call pt to schedule a follow-up appointment with him regarding his urinary retention/BPH issues. Pt is leaving with a lockwood catheter in place. Instructions for care will be in his D/C packet, per Vianney Alonzo. Pt states that he will call his for a ride home. Date Signed: 07/11/2018 08:39 AM Electronically Signed By:Fani Batres.RN Intervention Information
--- NOTE | 2018-07-11 08:54 | PDDCSUM ---
Discharge Summary Discharge Summary: DATE OF ADMISSION: 07/06/18 DATE OF DISCHARGE: 07/11/18 DISPOSITION: Home, self-care PRINCIPAL ADMISSION DIAGNOSIS: Severe coronary artery disease PRINCIPAL DISCHARGE DIAGNOSES: 1. Status post coronary artery bypass grafting x 3 2. Acute expected blood loss anemia 3. Postoperative paroxysmal atrial fibrillation 4. Acute postoperative respiratory insufficiency 5. Postoperative urinary retention due to benign prostatic hyperplasia HISTORY OF PRESENT ILLNESS: 68 yo male with an elevated coronary calcium score and frequent PVCs during stress testing found to have severe left sided CAD with left main involvement and admitted for elective surgical revascularization PERTINENT PAST MEDICAL HISTORY: Hyperlipidemia, impaired fasting glucose, migraine headaches, nocturia MEDICATIONS ON ADMISSION: ASA 81 mg daily, metoprolol tartrate 12.5 mg BID, atorvastatin 40 mg q2days, daily supplements (CoQ-10, milk thistle, saw palmetto, cinnamon and glucose metabolic support) ALLERGIES/SENSITIVITIES: Zocor causing myalgias CONSULTANTS: Pulmonology/critical care (Maranda), Urology (Sam) PROCEDURES/IMAGIN/24 (Leigh): Coronary artery bypass grafting x 3 (WOODARD-LAD, WILLIAM-OM via the transverse sinus, LRA-D1). Takedown bilateral internal mammary arteries. Open harvest left radial artery. Prophylactic AtriClip exclusion of the left atrial appendage. ABBREVIATED HOSPITAL COURSE BY ACTIVE PROBLEM LIST: 1. Severe 2V CAD - Amenable to all-arterial revascularization. Stable early postop course. Adequate autodiuresis of modest volume overload. Secondary prevention with ASA, BB and Lipitor QOD (myalgias on higher doses). Adjunctive CCB x 3 mo for radial artery antispasm prophylaxis. 2. Postoperative paroxysmal atrial fibrillation - Bursts of AF POD#3 without RVR or hypotension. BB escalated with good effect. Higher threshold for antithrombotic prophylaxis as left atrial appendage excluded. 3. Acute expected blood loss anemia - Stable. No transfusions required. 4. Acute postop respiratory insufficiency - Multifactorial, primarily pleural tube and incisional pain. Suppl O2 needs nearly resolved by time of discharge. 5. Postoperative urinary retention - Assoc with dysuria. BPH suspected. UA neg for infection. Flomax and Pyridium started. Coude cath replaced by urology for elev PVR after voiding trial. Outpt w/u arranged by Dr Vargas. DISCHARGE CLINICAL INFORMATION: Sternum grossly stable. Sternotomy and left radial arteriotomy CDI, sutured. HR 70s. SBP 110s-120s. SpO2 85% RA, correcting to > 91% on 1 lpm O2. Wt 0.5 kg above admission at 79.4 kilos. Hgb 11.5, HCT 34.9, Plt 152 , Na 133, K 3.9, Cr 0.9 DISCHARGE MEDICATIONS: As on admission with the following adjustments: 1. Increase metoprolol to 25 mg BID NEW prescriptions: 1. Amlodipine 2.5 mg daily thru 10/08/18 2. Percocet 5/325 one-half to one tablet q 6hrs prn incisional discomfort 3. Tamsulosin 0.8 mg daily 4. Oxygen continuously @ 1 lpm or as directed by SpO2 FOLLOW UP APPOINTMENTS: 1. CV surgery: with Dr Abraham at [facility] on 07/24 at 10:00 am. 2. Cardiology: with Dr Hawkins at [facility] within 4-6 weeks. Appointment to be established during surgical visit. 3. Urology: with Dr Vargas at [facility] in 7-10 days or as directed for removal of coude catheter and cystoscopy. FOLLOW UP TESTING: CXR prior to surgical appointment.
[2018-07-11] MEDS: ASPIRIN 81 MG CHEWABLE TAB PO SCH (09:04)
[2018-07-11] MEDS: METOPROLOL TARTRATE 25 MG TAB PO SCH (09:04)
[2018-07-11] MEDS: TAMSULOSIN HCL 0.4 MG CAP PO SCH (09:04)
[2018-07-11] MEDS: PANTOPRAZOLE SODIUM 40 MG TAB PO SCH (09:04)
[2018-07-11] MEDS: PHENAZOPYRIDINE HCL 200 MG TAB PO SCH (09:04)
--- NOTE | 2018-07-11 10:06 | SOAPPROG ---
EVELYN Progress Note Assessment/Plan: Assessment: BPH, urinary retention Plan: Continue with lockwood. Will arrange cysto/urocuff in office in 10 days 07/11/18 10:05 Subjective: doing well Objective: Vital Signs Temp Pulse Resp BP Pulse Ox 36.8 C 79 13 128/71 H 95 07/11/18 07:00 07/11/18 07:00 07/11/18 07:00 07/11/18 07:00 07/11/18 07:00 Laboratory Results 07/08/18 06:10 07/10/18 06:15 07/10/18 07/11/18 07/12/18 05:59 05:59 05:59 Intake Total 905 2170 Output Total 2700 1775 250 Balance -1795 395 -250 Physical Exam - Physical Exam General Appearance: alert, no apparent distress Respiratory: normal breath sounds, No respiratory distress Male Genitalia: other (catheter draining clear urine) ICD10 Worksheet Patient Problems: Problems Problem Status Onset Urinary retention due to benign prostatic hyperplasia Acute Acute blood loss anemia Acute CAD (coronary artery disease), [place] coronary artery Acute S/P CABG x 3 Acute S/P left atrial appendage ligation Acute
[2018-07-11 11:46] VITALS: BP 125/73
--- NOTE | 2018-07-13 10:54 | CPEKG ---
Test Reason : OPEN Blood Pressure : / mmHG Vent. Rate : 065 BPM Atrial Rate : 065 BPM P-R Int : 184 ms QRS Dur : 097 ms QT Int : 459 ms P-R-T Axes : -79 -06 022 degrees QTc Int : 478 ms Sinus or ectopic atrial rhythm Abnormal R-wave progression, early transition Borderline prolonged QT interval Confirmed by Sammy Moreland ([id number]) on 07/13/2018 10:53:37 AM Referred By: Mp Abraham Confirmed By:Sammy Moreland
== END 2018-07-11 12:32 | disposition home or self-care (01) | DRG 236 ==
LOC: F3N 07-06 05:45 → F2N 07-06 08:50 → F2W 07-07 15:00
PROVIDERS: ADMIT Thoracic Surgery (Cardiothoracic Vascular Surgery); ATTEND Thoracic Surgery (Cardiothoracic Vascular Surgery)
PROC: 02L70CK Occlusion of Left Atrial Appendage with Extraluminal Device, Open Approach (ICD-10-PCS; principal; 2018-07-06 07:15)
PROC: 02100Z8 Bypass Coronary Artery, One Artery from Right Internal Mammary, Open Approach (ICD-10-PCS; principal; 2018-07-06 07:15)
PROC: 021009W Bypass Coronary Artery, One Artery from Aorta with Autologous Venous Tissue, Open Approach (ICD-10-PCS; principal; 2018-07-06 07:15)
PROC: 03BC0ZZ Excision of Left Radial Artery, Open Approach (ICD-10-PCS; principal; 2018-07-06 07:15)
PROC: 02100Z9 Bypass Coronary Artery, One Artery from Left Internal Mammary, Open Approach (ICD-10-PCS; principal; 2018-07-06 07:15)
PROC: 5A1221Z Performance of Cardiac Output, Continuous (ICD-10-PCS; principal; 2018-07-06 07:15)
PROC: 0T9B70Z Drainage of Bladder with Drainage Device, Via Natural or Artificial Opening (ICD-10-PCS; 2018-07-06 07:15)
DX: I25.10 Atherosclerotic heart disease of native coronary artery without angina pectoris (principal); D62 Acute posthemorrhagic anemia; I48.0 Paroxysmal atrial fibrillation; R06.89 Other abnormalities of breathing; N40.1 Benign prostatic hyperplasia with lower urinary tract symptoms; R33.8 Other retention of urine; I49.3 Ventricular premature depolarization; E78.00 Pure hypercholesterolemia, unspecified; G43.909 Migraine, unspecified, not intractable, without status migrainosus; G47.30 Sleep apnea, unspecified
CPT/HCPCS: 82435-PO; 82565-PO; 82947-PO; 83605-ER; 84132-PO; 84295-PO; 84520-PO; 85014-ER; 97116-GP; 97161-GP; 97165-GO; 97535-GO; J0153; J0282; J0330; J0690; J1265; J1644; J1815; J1885; J2001; J2150; J2250; J2260; J2270; J2370; J2405; J2440; J2704; J2720; J2765; J2930; J3010; J3475; J3480; P9041

== ENCOUNTER → 2018-07-24 | Outpatient (CLI) | payer BC | LOC: FIMAGING 08:53 ==